=== PATIENT | male | born 1960 | race African-American/Black ===

== ENCOUNTER 2020-10-03 06:05 | Day surgery (SDC) | payer OTHER ==
--- NOTE | 2020-10-02 18:00 | NUR ---
ANESTHESIA REVIEWED PREOP TESTING. OK FOR SURGERY.
[~2020-10-03] VITALS: Ht 182.9 cm; Wt 127.0 kg
[2020-10-03 06:17] VITALS: BP 150/96
[2020-10-03 16:37] VITALS: BP 151/76
== END 2020-10-03 16:20 | disposition home or self-care (01) ==
LOC: DS 06:05 → OR 07:30 → DS 16:20
PROVIDERS: ATTEND Student in an Organized Health Care Education/Training Program
DX: M17.11 Unilateral primary osteoarthritis, right knee (principal); I10 Essential (primary) hypertension; E66.3 Overweight; Z68.38 Body mass index [BMI] 38.0-38.9, adult; Z79.899 Other long term (current) drug therapy; Z96.652 Presence of left artificial knee joint
CPT/HCPCS: 94150; C1713; C1776; J0131; J0690; J1170; J1885; J2405; J2704; J3010; J3490; J7030; J7120